=== PATIENT | male | born 1975 | race American Indian/Alaskan Native ===

== ENCOUNTER 2017-06-15 17:27 | Emergency (ER) | payer BC ==
--- NOTE | 2017-06-15 17:34 | ED PDOC ---
Arrival/HPI - General Chief Complaint: Seizure Time Seen by Provider: 06/15/17 17:27 Historian: Patient, EMS - History of Present Illness Narrative History of Present Illness (Text): 06/15/17 17:33 Patient is a 41 y/o M with hx of seizure disorder, brought into the emergency department after witnessed seizure. Patient was a passenger in his friends car when he had a generalized tonic clonic seizure. Patient stayed in the car, sitting in chair and did not suffer any head trauma. Patient experienced normal postictal symptoms and then became oriented. Friend called 911. On evaluation, patient denies any pain or discomfort. He reports he did not take his Depakote or Tegretol today. Patient denies any fever, chills, chest pain, shortness of breath, nausea, vomiting, diarrhea, urinary symptoms, urinary or bowel incontinence, back pain, neck pain, headache, dizziness, trauma/injury, or any other complaints. 06/15/17 18:54 Time/Duration: Prior to Arrival Symptom Onset: Sudden Symptom Course: Resolved Activities at Onset: Rest Context: Passenger Past Medical History - Provider Review Nursing Documentation Reviewed: Yes Family/Social History - Physician Review Nursing Documentation Reviewed: Yes Family/Social History: Unknown Family HX Allergies/Home Meds Allergies/Adverse Reactions: Allergies No Known Allergies Allergy (Unverified 06/15/17 17:36) Home Medications: Home Meds Medication Instructions Recorded Confirmed Divalproex [Depakote DR] 500 mg PO BID 06/15/17 06/15/17 carBAMazepine [Tegretol] 200 mg PO BID 06/15/17 06/15/17 Review of Systems - Physician Review All systems were reviewed & negative as marked: Yes - Review of Systems Constitutional: absent: Fevers, Night Sweats Respiratory: absent: SOB, Cough, Sputum, Wheezing Cardiovascular: absent: Chest Pain, Palpitations Gastrointestinal: absent: Abdominal Pain, Diarrhea, Nausea, Vomiting Genitourinary Male: absent: Dysuria, Hematuria Musculoskeletal: absent: Back Pain, Neck Pain Neurological: Seizure. absent: Headache, Dizziness Physical Exam Vital Signs Reviewed: Yes Vital Signs Temp Pulse Resp BP Pulse Ox 06/15/17 18:21 95 H 18 125/88 99 06/15/17 17:41 98.3 F 100 H 18 129/90 99 Temperature: Afebrile Blood Pressure: Normal Pulse: Regular Respiratory Rate: Normal Appearance: Positive for: Well-Appearing, Non-Toxic, Comfortable Pain Distress: None Mental Status: Positive for: Alert and Oriented X 3. No: Confused Finger Stick Blood Glucose: 67 - Systems Exam Head: Present: Atraumatic, Normocephalic Pupils: Present: PERRL Extroacular Muscles: Present: EOMI Conjunctiva: Present: Normal Mouth: Present: Moist Mucous Membranes Neck: Present: Normal Range of Motion Respiratory/Chest: Present: Clear to Auscultation, Good Air Exchange. No: Respiratory Distress, Accessory Muscle Use Cardiovascular: Present: Regular Rate and Rhythm, Normal S1, S2. No: Murmurs Abdomen: Present: Normal Bowel Sounds. No: Tenderness, Distention, Peritoneal Signs Back: Present: Normal Inspection Upper Extremity: Present: Normal Inspection. No: Cyanosis, Edema Lower Extremity: Present: Normal Inspection. No: Edema Neurological: Present: GCS=15, CN II-XII Intact, Speech Normal, Motor Func Grossly Intact, Normal Sensory Function, Normal Cerebellar Funct Skin: Present: Warm, Dry, Normal Color. No: Rashes Psychiatric: Present: Alert, Oriented x 3, Normal Insight, Normal Concentration Medical Decision Making ED Course and Treatment: 06/15/17 17:48 Impression: 41 year old male with history of seizure disorder, non-compliant with Depkote and Tegretol today, presenting after seizure. fs:[id number] Plan: -- Depakote and Tegretol -- Reassess and disposition Progress Notes: 06/15/17 17:52 Plan is to give patients missed dose of Depakpte and Tegretol, and have patient follow up with neurologist and PMD. Patient has no complaints. He had no head trauma. He is AAOx3 with normal physical exam. Normal vitals. No complaint of fever and was at baseline just prior to seizure. Seizure likely secondary to medication non-compliance as he now reports that he hasn't taken his medication for 4 days. Friend who witnessed seizure called 911 and patient now in police custody due to outstanding warrrant. He is requesting discharge into police custody. He was given his depakote and tegretol and is now requesting discharge. 06/15/17 18:58 - Medication Orders Current Medication Orders: Discontinued Medications Carbamazepine (Tegretol) 200 mg PO STAT STA PRN Reason: Protocol Stop: 06/15/17 17:46 Last Admin: 06/15/17 18:11 Dose: 200 mg Divalproex Sodium (Depakote Dr (*Bid*)) 500 mg PO STAT STA PRN Reason: Protocol Stop: 06/15/17 17:48 Last Admin: 06/15/17 18:11 Dose: 500 mg - Scribe Statement The provider has reviewed the documentation as recorded by the Raphaelibrosanne Ann All medical record entries made by the Raphaelibrosanne were at my direction and personally dictated by me. I have reviewed the chart and agree that the record accurately reflects my personal performance of the history, physical exam, medical decision making, and the department course for this patient. I have also personally directed, reviewed, and agree with the discharge instructions and disposition. Disposition/Present on Arrival - Present on Arrival Any Indicators Present on Arrival: No - Disposition Have Diagnosis and Disposition been Completed?: Yes Diagnosis: Seizure disorder Disposition: RELEASED IN POLICE CUSTODY Disposition Time: 17:59 Patient Plan: Discharge Patient Problems: Current Active Problems Problem Status Onset Seizure disorder Acute Condition: GOOD Discharge Instructions (ExitCare): Recurrent Seizures in Adults (ED) Additional Instructions: Cleared to be released to police custody. Follow-up with PMD within 2 days. Take your seizure medication as prescribed. Return to ED immediately if condition worsens. Forms: [employer] (Hungarian)
[2017-06-15] MEDS ORDERED: Divalproex 250 mg DR (BID formulation) PO STA (17:47)
[2017-06-15 18:15] VITALS: RESP 18; TEMP 98.3; O2SAT 99
[2017-06-15 18:21] VITALS: BP 125/88; PULSE 95
== END 2017-06-15 18:20 ==
LOC: ED 17:27
DX: G40.909 Epilepsy, unspecified, not intractable, without status epilepticus (principal)